=== PATIENT | male | born 1955 | race Caucasian/White ===

== ENCOUNTER 2019-09-11 09:51 | Inpatient (IN) ==
--- NOTE | 2019-09-11 10:08 | ERNOTE ---
Integumentary HPI - General Presenting Symptoms: other - infected right foot, primarily the middle toe Time Seen by Provider: 09/11/19 10:02 Source: patient Exam Limitations: no limitations - Immun/Allergies/Home Medications Immunizations: IMMUNIZATION HX Immunizations Up to Date Yes Allergies/Adverse Reactions: Allergies Allergy/AdvReac Type Severity Reaction Status Date / Time No Known Allergies Allergy Verified 07/24/19 10:36 Home Medications: HOME MEDICATIONS canagliflozin 300 mg tablet 300 mg PO DAILY #90 tab 01/17/19 [Last Taken Unknown] metformin 1,000 mg tablet 1,000 mg PO BIDWM #180 tab 01/17/19 [Last Taken Unknown] metoprolol succinate 100 mg tablet,extended release 24 hr 100 mg PO DAILY #90 tab 05/21/19 [Last Taken Unknown] lisinopril 40 mg tablet 40 mg PO BID #180 tab 05/28/19 [Last Taken Unknown] simvastatin 20 mg tablet 20 mg PO DAILY #90 tab 06/19/19 [Last Taken Unknown] amlodipine 10 mg tablet 10 mg PO DAILY #90 tab 07/23/19 [Last Taken Unknown] hydrochlorothiazide 25 mg tablet 25 mg PO DAILY #90 tab 07/23/19 [Last Taken Unknown] glimepiride 4 mg tablet 4 mg PO BID #180 tab 08/08/19 [Last Taken Unknown] Cefadroxil [Duricef] 500 mg PO TID 09/09/19 [Last Taken Unknown] Insulin Glargine/Lixisenatide [Soliqua 100 Unit-33 Mcg/ml Pen] 60 unit SUBCUT QAM 09/09/19 [Last Taken Unknown] Pen Needle, Diabetic [Pen Needle] See Protocol .ROUTE .MEDSUPPLY 09/09/19 [Last Taken Unknown] - Pain Pain Score: 3 - History of Present Illness Narrative: Patient presents with continuing infection of primarily the middle toe on the right foot which is now spread up to the distal foot. He has been seen by a local metal finish inspector and was started on a first generation cephalosporin. He does have an appointment to see the wound clinic tomorrow in [place]. But became somewhat concerned and decided to have it examined again here in the ED. Location: Reports: feet Severity: moderate Exposure: Reports: no cause identified Modifying Factors - (Improves): Reports: nothing Modifying Factors - (Worsens): Reports: nothing Associated Symptoms: Reports: edema Prior Treatment: Reports: recently seen, treated by physician, currently on antibiotics Review of Systems - Review of Systems Constitutional: Present: See HPI EYE: Present: no symptoms reported ENT: Present: no symptoms reported Respiratory: Present: no symptoms reported Cardiology: Present: no symptoms reported Gastrointestinal/Abdominal: Present: no symptoms reported Genitourinary: Present: no symptoms reported Musculoskeletal: Present: See HPI Skin: Present: no symptoms reported Neurological: Present: no symptoms reported Endocrine: Present: no symptoms reported Hematologic/Lymphatic: Present: no symptoms reported Psych: Present: no symptoms reported Medical History (Last Reviewed 09/11/19 @ 09:57 by Catalina Prabhakar RN) 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 Dr. Wheatley, [facility] Orth[facility] Diabetic Charcot foot R foot Surgical History: Surgical History (Last Reviewed 09/11/19 @ 09:57 by Catalina Prabhakar RN) Hematoma Onset Date: ~01/01/15 right thigh evacuation of hematoma with placement of drain, Dr. Burton History of hip surgery Onset Date: ~1968 Right hip- slipped epiphysis with hardware placement Hx of colonoscopy Onset Date: ~11/03/11 Dr. Karlos morris/julieth in 10 years Family History: Family History (Last Reviewed 09/11/19 @ 09:57 by Catalina Prabhakar RN) Father Hypertension Hyperthyroidism Mother , Age 61 Ovarian cancer Daughter Alive and well Son Alive and well Social History: (Last Reviewed 09/11/19 @ 09:57 by Catalina Prabhakar RN) Social History: adopted: No prison: No Marital status: household members: spouse number of children: 2 current occupational status: retired Service: No Tobacco: Smoking Status: Never smoker Alcohol: alcohol intake: current alcohol intake frequency: a few times a month Dietary Habits: caffeine: Yes Type: coffee Physical Exam - Physical Exam General Appearance: Present: wd/wn, alert, mild distress Head Exam: Present: normal inspection, no evidence of injury Eye Exam: Normal inspection: bilateral, PERRL: bilateral Ears, Nose, Throat: Present: normal ENT inspection, H, normal pharynx Neck: Present: normal inspection, nontender Respiratory: Present: no respiratory distress, normal breath sounds, no accessory muscle use, chest nontender, lungs clear Cardiovascular/Chest: Present: regular rate, rhythm, no murmur, normal peripheral pulses Gastrointestinal/Abdominal: Present: normal bowel sounds, nontender, nondistended, soft, no organomegaly Rectal Exam: Present: deferred Back Exam: Present: normal inspection, normal range of motion Extremity Exam: Present: non-tender, normal range of motion, other - Erythema with edema to the right foot. Mild purulent drainage coming from the middle toe on the right foot with distal erythema on the foot as well up to approximately the transmetatarsal area. Neurological Exam: Present: alert, oriented, normal mood/affect Skin Exam: Present: normal color, warm/dry Lymphatic Exam: Present: no adenopathy Progress - Results and Orders Patient's Lab Results:: I have reviewed the patient's lab results. - Vital Signs Patient's Vital Signs:: I have reviewed the patient's vital signs. Vital Signs: Vital Signs 09/11/19 09:55 Temperature 36.2 C Pulse Rate 98 Respiratory Rate 15 Blood Pressure 106/82 O2 Sat by Pulse Oximetry 96 - X-Ray X-Ray #1 X-Ray: foot Interpretation: Reviewed by me - Progress/Reassessment Chief Complaint: Cellulitis Plan - Plan Plan: Patient will be admitted for aggressive antibiotic therapy. I discussed case with Dr. Beltre, the on-call metal finish inspector, and she agrees to consult the patient on the floor. Patient was informed that he may very likely require surgery and partial amputation of that toe. Departure Clinical Impression: Osteomyelitis of ankle and foot Cellulitis Qualifiers: Site of cellulitis: extremity Site of cellulitis of extremity: toe Laterality: right Qualified Code(s): L03.031 - Cellulitis of right toe - Departure Disposition: Still a patient Condition: Fair Referrals: Cesario Gutierrez MD [Primary Care Provider] -
[2019-09-11 10:37] LABS: Hematocrit 43.2 % (42.0-52.0); Hemoglobin 14.1 gm/dL (13.5-18.0); Mean Cell Volume 86.7 fl (78-100); Mean Corpuscular Hemoglobin 28.3 pg (27-31); Mean Corpuscular Hgb Conc 32.6 g/dl (32-36); Mean Platelet Volume 10.5 fl (8-11.3); Neutrophil # 10.3 K/mm3 (1.3-6.0); Neutrophil % 79.2 % (42-75.0); Platelet Count 211 K/mm3 (150-450); Red Blood Count 4.98 M/mm3 (4.7-6.0); Red Cell Distribution Width 13.5 % (11.5-14.0); White Blood Count 13.1 K/mm3 (4.0-10.5)
[2019-09-11 10:50] LABS: Albumin * 3.2 gm/dl (3.4-5.0); Anion Gap 15.3 mmol/L (6.8-13.8); BUN/Creatinine Ratio 22.2 (9.0-21.6); Bilirubin, Total 0.6 mg/dL (0.0-1.1); Ca. Corrected For Albumin 8.8 mg/dL (8.4-10.2); Calcium * 8.5 mg/dL (7.9-10.9); Carbon Dioxide 24.2 mmol/L (24-32.6); Potassium 4.5 mmol/L (3.4-4.6)
[2019-09-11] MEDS ORDERED: VANCOMYCIN HCL 1 GM in DEXTROSE 5 % IN WATER 250 ML IV ONE ×2 (11:05)
[2019-09-11] MEDS ORDERED: VANCOMYCIN HCL 1 GM, VANCOMYCIN HCL 500 MG in DEXTROSE 5 % IN WATER 500 ML IV ONE ×3 (11:15)
[2019-09-11] MEDS ORDERED: ACETAMINOPHEN 500 MG TABLET PO PRN (13:29)
[2019-09-11] MEDS: GABAPENTIN 300 MG CAPSULE PO SCH ×2 (14:22→16:50)
[2019-09-11] MEDS: ENOXAPARIN SODIUM 40 MG/0.4 ML SYRG SC SCH (14:31)
--- NOTE | 2019-09-11 18:02 | CONS ---
- Reason for consultation (1) Cellulitis Date of Service: 09/11/19 Reason for Consultation:: Ulceration, cellulitis, osteomyelitis right 3rd toe HPI - General Date of Service: 09/11/19 Narrative: Patient seen at bedside for evaluation and care of an ulceration to the distal aspect of the right 3rd toe. States that he has had trouble with this toe for a little while, and has been under the care of Dr. Chau at [facility]. He did also recently see Dr. Frazier, stating that Dr. Chau was unavailable. His most recent visit with Dr. Frazier was today, after the patient noticed some increased redness and swelling about the toe into the foot. He was advised to present to the ED, with concerns of severe infection in the toe. On presentation to the ED, xrays were obtained, showing concern for bone infection. He was admitted for IV ABX therapy, and I was consulted for surgical evaluation. He denies any NVFC. He denies any pain in the foot secondary to diabetic neuropathy. Source: patient Exam Limitations: no limitations - History of Present Illness Timing/Duration: getting worse Severity: severe Allergies/Adverse Reactions: Allergies No Known Allergies Allergy (Verified 07/24/19 10:36) Home Medications: Home Medications Medication Instructions Recorded Last Taken canagliflozin 300 mg tablet 300 mg PO DAILY #90 tab 01/17/19 Unknown metformin 1,000 mg tablet 1,000 mg PO BIDWM #180 tab 01/17/19 Unknown metoprolol succinate 100 mg 100 mg PO DAILY #90 tab 05/21/19 Unknown tablet,extended release 24 hr lisinopril 40 mg tablet 40 mg PO BID #180 tab 05/28/19 Unknown simvastatin 20 mg tablet 20 mg PO DAILY #90 tab 06/19/19 Unknown amlodipine 10 mg tablet 10 mg PO DAILY #90 tab 07/23/19 Unknown hydrochlorothiazide 25 mg tablet 25 mg PO DAILY #90 tab 07/23/19 Unknown glimepiride 4 mg tablet 4 mg PO BID #180 tab 08/08/19 Unknown Insulin Glargine/Lixisenatide 0.5 ml SUBCUT QAM 09/09/19 Unknown [Soliqua 100 Unit-33 Mcg/ml Pen] Pen Needle, Diabetic [Pen Needle] See Protocol .ROUTE .MEDSUPPLY 09/09/19 Unknown Acetaminophen [Tylenol] 500 mg PO Q6H PRN 09/11/19 Unknown Dabigatran Etexilate Mesylate 150 mg PO BID 09/11/19 Unknown [Pradaxa] Gabapentin 300 mg PO TID 09/11/19 Unknown Procedures Colonoscopy (11/03/11) Other incision of soft tissue (01/01/15) Medications - Medications Current Medications: Current Medications Enoxaparin Sodium (Lovenox) 40 mg SC Q24H [facility] Stop: 10/11/19 13:46 Last Admin: 09/11/19 14:31 Dose: 40 mg Documented by: Gabapentin (Neurontin) 300 mg PO TID [facility] Stop: 10/11/19 14:01 Last Admin: 09/11/19 16:50 Dose: 300 mg Documented by: Metformin HCl (Glucophage) 1,000 mg PO BIDWM [facility] Stop: 10/11/19 17:01 Last Admin: 09/11/19 16:50 Dose: 1,000 mg Documented by: Review of Systems - Review of Systems Generalized/Overall Review: Absent: Chills, Fever, Fatigue Respiratory: Absent: Shortness of Breath Cardiac: Present: Edema Abdominal: Absent: Nausea, Vomiting, Diarrhea Neurological: Present: Numbness Skin: Present: Other - ulceration, redness, swelling right 3rd toe Physical Examination - Exam Vital Signs: Vital Signs - Last Taken Temp 37.3 C 09/11/19 14:15 Pulse 84 09/11/19 14:15 Resp 20 09/11/19 14:15 BP 130/71 09/11/19 14:15 Pulse Ox 92 L 09/11/19 14:15 O2 Oxygen Delivery Method Room Air Constitutional: Present: Alert, Oriented x3, Cooperative Peripheral Pulses: dorsalis-pedis (R): 1+, dorsalis-pedis (L): 1+ Extremity: Present: lower extremity edema, pedal edema Skin Exam: Present: other - Ulceration to the distal aspect of the right 3rd toe measuring 0.7 x 0.4 x 3.5 cm. There is no undermining, but the ulceration does tunnel across the entire dorsum of the toe to the base. Wound bed covered with mix of yellow fibtotic slough tissue and red granulation tissue. Surrounding tissue is macerated, edematous, and erythematous. Erythema extends from the 3rd toe in to the dorsum of the foot to the level of the midfoot. This area is warm to touch. There is a moderate amount of purulent drainage, with foul odor present. Bone is palpable through the ulceration. Neurologic: Present: sensory deficit Appearance: Present: appropriate appearance Eye contact: Present: cooperative Thoughts: Present: normal thought pattern - Results and Findings: Narrative: Xrays of right foot reviewed. Agree with report as documented in chart. Lab/Microbiology results last 24 hrs: Abnormal/Pending Laboratory Last 24 HRS 09/11/19 09/11/19 10:21 10:21 WBC 13.1 H Immature Gran # (Auto) 0.05 H Neutrophils % 79.2 H Lymphocytes % 12.5 L Neutrophils # 10.3 H Anion Gap 15.3 H BUN 26 H BUN/Creatinine Ratio 22.2 H Random Glucose 200 H Albumin 3.2 L - Assessments/Findings (1) Cellulitis Diagnosis(s): Continue current ABX as ordered per Dr. Tatum. Problem: Acute Qualifiers: Site of cellulitis: extremity Site of cellulitis of extremity: toe Laterality: right Qualified Code(s): L03.031 - Cellulitis of right toe (2) Osteomyelitis of ankle and foot Diagnosis(s): Discussed xray findings with patient and treatment options. Recommend at minimum partial 3rd toe amputation, with possibility of complete 3rd toe amputation vs partial 3rd ray amputation. Would like to observe on IV ABX for the next 24-48 hours to allow some of the infection that is in the foot to improve, to allow better chances of surgical wound healing. At this time, will schedule for right 3rd toe amputation on 09/14/19, however if condition worsens will plan urgent trip to OR for surgical debridement and amputation. Patient is in agreement with this plan. Ulceration is dressed today with Aquacel Ag, dry gauze, and tape. This dressing will be changed daily by me at this time. He may bear weight on this foot in surgical shoe, which he already has. He is to elevate his extremities at rest to help reduce edema. I will continue to follow, plan for surgery as above. Problem: Acute
[2019-09-11] MEDS ORDERED: LISINOPRIL 40 MG TABLET PO SCH (21:00)
[2019-09-11] MEDS ORDERED: GLIMEPIRIDE 2 MG TABLET ONE (21:35)
[2019-09-11] MEDS: GLIMEPIRIDE 4 MG TABLET PO SCH (21:48)
[2019-09-11] MEDS: SACCHAROMYCES BOULARDII 250 MG CAPSULE PO SCH (21:49)
[2019-09-11] MEDS: SIMVASTATIN 20 MG TABLET PO SCH (21:49)
[2019-09-11] MEDS ORDERED: LISINOPRIL 10 MG TABLET PO SCH (22:00)
[2019-09-11] MEDS: PIPERACILLIN SODIUM/TAZOBACTAM 3.375 GM in DEXTROSE 5 % IN WATER 100 ML IV SCH ×2 (22:13)
[2019-09-11] MEDS ORDERED: GABAPENTIN 300 MG CAPSULE PO ONE (22:51)
--- NOTE | 2019-09-11 23:41 | HP ---
Chief Complaint - Chief Complaint Date of Service: 09/11/19 Time of Service: 16:00 Chief Complaint: Right third toe swelling and redness History of Present Illness: Stuart is a 63 yo male with known diabetes mellitus type 2, insulin dependent with diabetic foot neuropathy on gabapentin, and a history of diabetic foot ulcers. He has been following with Dr. Chau at [facility]. Dr. Chau was out of town so he was seen by Dr. Frazier about 4 days ago. He was started on oral antibiotics and a ulcer on the 3rd right digit was debrided. He followed up today and was having worsening swelling and redness and was ther efore sent to the [facility] ER for further evaluation. In the ER he was evaluated with foot xray which showed: IMPRESSION: 1. FOCAL DESTRUCTIVE CHANGE OF THE DISTAL PHARYNX THE THIRD TOE WITH OVERLYING SOFT TISSUE SWELLING CONSISTENT WITH OSTEOMYELITIS. 2. DIFFUSE CELLULITIS OF THE RIGHT FOOT. 3. EXTENSIVE DEGENERATIVE CHANGE OF THE MIDFOOT WITH ASSOCIATED MIDFOOT COLLAPSE, LATERAL SUBLUXATION AND ANGULATION OF THE METATARSALS AND WIDENING OF BETWEEN THE FIRST AND SECOND METATARSAL BASES CONSISTENT WITH DISRUPTION OF THE LISFRANC JOINT. THIS CONSTELLATION OF FINDINGS IS CONSISTENT WITH DIABETIC NEUROPATHIC JOINT (CHARCOT JOINT). 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 Dr. Wheatley, [facility] Ortho Diabetic Charcot foot R foot Surgical History: Surgical History (Last Reviewed 09/11/19 @ 11:39 by Tanya Kovacs RN) Hematoma Onset Date: ~01/01/15 right thigh evacuation of hematoma with placement of drain, Dr. Burton History of hip surgery Onset Date: ~1968 Right hip- slipped epiphysis with hardware placement Hx of colonoscopy Onset Date: ~11/03/11 Dr. Karlos morris/julieth in 10 years Family History: Family History (Last Reviewed 09/11/19 @ 11:39 by Tanya Kovacs RN) Father Hypertension Hyperthyroidism Mother , Age 61 Ovarian cancer Daughter Alive and well Son Alive and well Social History: (Last Reviewed 09/11/19 @ 09:57 by Catalina Prabhakar RN) Social History: adopted: No mcc: No Marital status: household members: spouse number of children: 2 current occupational status: retired Service: No Tobacco: Smoking Status: Never smoker Alcohol: alcohol intake: current alcohol intake frequency: a few times a month Dietary Habits: caffeine: Yes Type: coffee Review Of Systems (GEN) - Review of Systems Generalized/Overall Review: Absent: Weakness, Chills EENTM: Present: No Symptoms Reported Respiratory: Absent: Cough, Shortness of Breath Cardiac: Absent: Chest Pain, Edema Abdominal: Present: Nausea. Absent: Vomiting, Abdominal Pain, Constipation Genitourinary: Present: No Symptoms Reported Musculoskeletal: Present: Joint Swelling - right 3rd toe Skin: Present: Other - Right third toe with diffuse swelling, erythema, and foul odor Immunizations: IMMUNIZATION HX Immunizations Up to Date Yes Allergies/Adverse Reactions: Allergies Allergy/AdvReac Type Severity Reaction Status Date / Time No Known Allergies Allergy Verified 07/24/19 10:36 Home Medications: HOME MEDICATIONS canagliflozin 300 mg tablet 300 mg PO DAILY #90 tab 01/17/19 [Last Taken Unknown] metformin 1,000 mg tablet 1,000 mg PO BIDWM #180 tab 01/17/19 [Last Taken Unknown] metoprolol succinate 100 mg tablet,extended release 24 hr 100 mg PO DAILY #90 tab 05/21/19 [Last Taken Unknown] lisinopril 40 mg tablet 40 mg PO BID #180 tab 05/28/19 [Last Taken Unknown] simvastatin 20 mg tablet 20 mg PO DAILY #90 tab 06/19/19 [Last Taken Unknown] amlodipine 10 mg tablet 10 mg PO DAILY #90 tab 07/23/19 [Last Taken Unknown] hydrochlorothiazide 25 mg tablet 25 mg PO DAILY #90 tab 07/23/19 [Last Taken Unknown] glimepiride 4 mg tablet 4 mg PO BID #180 tab 08/08/19 [Last Taken Unknown] Insulin Glargine/Lixisenatide [Soliqua 100 Unit-33 Mcg/ml Pen] 0.5 ml SUBCUT QAM 09/09/19 [Last Taken Unknown] Pen Needle, Diabetic [Pen Needle] See Protocol .ROUTE .MEDSUPPLY 09/09/19 [Last Taken Unknown] Acetaminophen [Tylenol] 500 mg PO Q6H PRN 09/11/19 [Last Taken Unknown] Dabigatran Etexilate Mesylate [Pradaxa] 150 mg PO BID 09/11/19 [Last Taken Unknown] Gabapentin 300 mg PO TID 09/11/19 [Last Taken Unknown] Exam - Exam Vital Signs: Vital Signs - Last Taken Temp 37.1 C 09/11/19 22:29 Pulse 88 09/11/19 22:29 Resp 20 09/11/19 22:29 BP 125/72 09/11/19 22:29 Pulse Ox 96 09/11/19 22:29 Constitutional: Present: Alert, Oriented x3, Cooperative ENT Exam: Present: hearing grossly normal Eye Exam: bilateral eye: normal inspection Respiratory: Present: lungs clear, normal breath sounds Cardiovascular/Chest: Present: regular rate, rhythm, no murmur Abdomen: Present: Normal bowel sounds, soft, nontender, nondistended Skin Exam: Present: other - Right third toe diffusely swollen, erythematous, and foul smelling Neurologic: Present: other - Right foot with only sensation at dorsum and heal Appearance: Present: appropriate appearance, appropriate insight Eye contact: Present: cooperative, good eye contact, normal speech Thoughts: Present: normal thought pattern, no apparent hallucination Diagnostic Studies: Abnormal Lab Results 09/11/19 09/11/19 Range/Units 10:21 10:21 WBC 13.1 H (4.0-10.5) K/mm3 Immature Gran # (Auto) 0.05 H (0.000-0.0310) K/mm3 Neutrophils % 79.2 H (42-75.0) % Lymphocytes % 12.5 L (20-51) % Neutrophils # 10.3 H (1.3-6.0) K/mm3 Anion Gap 15.3 H (6.8-13.8) mmol/L BUN 26 H (6-23) mg/dL BUN/Creatinine Ratio 22.2 H (9.0-21.6) Random Glucose 200 H (70-110) mg/dL Albumin 3.2 L (3.4-5.0) gm/dl Laboratory Results WBC 13.1 K/mm3 (4.0-10.5) H 09/11/19 10:21 RBC 4.98 M/mm3 (4.7-6.0) 09/11/19 10:21 Hgb 14.1 gm/dL (13.5-18.0) 09/11/19 10:21 Hct 43.2 % (42.0-52.0) 09/11/19 10:21 MCV 86.7 fl (78-100) 09/11/19 10:21 MCH 28.3 pg (27-31) 09/11/19 10:21 MCHC 32.6 g/dl (32-36) 09/11/19 10:21 RDW 13.5 % (11.5-14.0) 09/11/19 10:21 Plt Count 211 K/mm3 (150-450) 09/11/19 10:21 MPV 10.5 fl (8-11.3) 09/11/19 10:21 Immature Gran % (Auto) 0.40 % (0.001-0.429) 09/11/19 10:21 Immature Gran # (Auto) 0.05 K/mm3 (0.000-0.0310) H 09/11/19 10:21 Neutrophils % 79.2 % (42-75.0) H 09/11/19 10:21 Lymphocytes % 12.5 % (20-51) L 09/11/19 10:21 Monocytes % 6.7 % (0.0-9) 09/11/19 10:21 Eosinophils % 0.9 % (0.0-3.0) 09/11/19 10:21 Basophils % 0.3 % (0.0-1.0) 09/11/19 10:21 Nucleated RBC % 0.0 k/mm3 (0-1) 09/11/19 10:21 Neutrophils # 10.3 K/mm3 (1.3-6.0) H 09/11/19 10:21 Lymphocytes # 1.64 k/mm3 (1.5-3.5) 09/11/19 10:21 Monocytes # 0.9 k/mm3 (0.0-1.0) 09/11/19 10:21 Eosinophils # 0.1 k/mm3 (0.0-0.7) 09/11/19 10:21 Absolute Basophils 0.0 k/mm3 (0.0-0.1) 09/11/19 10:21 Sodium 135 mmol/L (132-142) 09/11/19 10:21 Plasma Sodium 137 mmol/L (130-142) 09/11/19 10:21 Potassium 4.5 mmol/L (3.4-4.6) 09/11/19 10:21 Chloride 100 mmol/L (97-106) 09/11/19 10:21 Carbon Dioxide 24.2 mmol/L (24-32.6) 09/11/19 10:21 Anion Gap 15.3 mmol/L (6.8-13.8) H 09/11/19 10:21 BUN 26 mg/dL (6-23) H 09/11/19 10:21 Creatinine 1.17 mg/dL (0.4-1.4) 09/11/19 10:21 Est GFR (Non-Af Amer) 67 mL/min (60-130) 09/11/19 10:21 BUN/Creatinine Ratio 22.2 (9.0-21.6) H 09/11/19 10:21 Random Glucose 200 mg/dL (70-110) H 09/11/19 10:21 Lactic Acid, Venous 1.4 mmol/L (0.4-2.0) 09/11/19 10:21 Calcium 8.5 mg/dL (7.9-10.9) 09/11/19 10:21 Calcium Adj for Albumin 8.8 mg/dL (8.4-10.2) 09/11/19 10:21 Total Bilirubin 0.6 mg/dL (0.0-1.1) 09/11/19 10:21 AST 16 U/L (0-48) 09/11/19 10:21 ALT 20 U/L (19-67) 09/11/19 10:21 Alkaline Phosphatase 62 U/L (50-170) 09/11/19 10:21 Total Protein 8.0 gm/dL (6.2-8.2) 09/11/19 10:21 Albumin 3.2 gm/dl (3.4-5.0) L 09/11/19 10:21 Assessment/Plan - Narrative Narrative: Stuart is a 63 yo male with osteomyelitis of right third toe secondary to diabetic foot ulcer, diabetic neuropathy, and uncontrolled diabetes mellitus. He will likely need amputation but will admit to inpatient and start on antibiotics of vancomycin and zosyn to decrease bacterial load. Will monitor for improvement and maybe he won't need amputation. Will consult podiatry for evaluation and surgical intervention if needed. - Assessment/Plan (1) Diabetic foot ulcer with osteomyelitis Problem: Acute (2) Diabetic neuropathy associated with type 2 diabetes mellitus Problem: Chronic Qualifiers: Diabetes mellitus complication detail: diabetic polyneuropathy Qualified Co de(s): E11.42 - Type 2 diabetes mellitus with diabetic polyneuropathy (3) Diabetes type 2, uncontrolled Problem: Chronic Qualifiers: Glycemic state: with hyperglycemia Qualified Code(s): E11.65 - Type 2 diabetes mellitus with hyperglycemia
[2019-09-12] MEDS: PIPERACILLIN SODIUM/TAZOBACTAM 3.375 GM in DEXTROSE 5 % IN WATER 100 ML IV SCH ×6 (07:09→21:11)
[2019-09-12] MEDS: GLIMEPIRIDE 4 MG TABLET PO SCH ×2 (08:42→21:10)
[2019-09-12] MEDS: SACCHAROMYCES BOULARDII 250 MG CAPSULE PO SCH ×2 (08:44→21:10)
[2019-09-12] MEDS: GABAPENTIN 300 MG CAPSULE PO SCH ×3 (08:45→21:10)
[2019-09-12] MEDS: HYDROCHLOROTHIAZIDE 25 MG TABLET PO SCH (08:45)
[2019-09-12] MEDS: amLODIPine BESYLATE 10 MG TABLET PO SCH (08:46)
[2019-09-12] MEDS: METOPROLOL SUCCINATE 100 MG TABLET.SA PO SCH (08:48)
[2019-09-12] MEDS: LISINOPRIL 40 MG TABLET PO SCH ×2 (08:48→21:11)
[2019-09-12] MEDS: ENOXAPARIN SODIUM 40 MG/0.4 ML SYRG SC SCH (13:04)
--- NOTE | 2019-09-12 13:55 | PN ---
Subjective - Date and Time Seen Date: 09/12/19 Time: 12:00 Subjective Narrative: Pt evaluated at bedside, resting comfortably. Denies any NVFC. His dressing has been removed at my request after it got wet in the shower. Dry gauze and tape has been applied. He denies any pain in his foot. Feels as though the foot is improving some with current ABX treatment. He has agreed to amputation of the toe, which is planned for 09/14/19, unless condition worsens. No other concerns at this time. Objective - Review of Systems Generalized/Overall Review: Denies: Chills, Fever, Malaise Respiratory: Denies: Shortness of Breath Cardiac: Reports: Edema Abdominal: Denies: Nausea, Vomiting, Diarrhea Neurological: Reports: Numbness Skin: Reports: Other - ulceration right 3rd toe, erythema right foot Endocrine: Denies: Intolerance to Cold, Intolerance to Heat - Vitals Vitals: Last Vital Signs Temp 36.6 C 09/12/19 13:30 Pulse 61 09/12/19 13:30 Resp 24 H 09/12/19 13:30 BP 98/54 09/12/19 13:30 Pulse Ox 93 09/12/19 13:30 - Exam Constitutional: Present: Alert, Oriented x3, Cooperative Extremity: Present: lower extremity edema, pedal edema Skin Exam: Present: other - Ulceration to the distal aspect of the right 3rd toe measuring 0.7 x 0.4 x 3.5 cm. There is no undermining, but the ulceration does tunnel across the entire dorsum of the toe to the base. Wound bed covered with mix of yellow fibtotic slough tissue and red granulation tissue. Surrounding tissue is macerated, edematous, and erythematous. Erythema extends from the 3rd toe in to the dorsum of the foot to the level of the midfoot. Erythema about the dorsum of the foot not as intense today, appears to be improving in this area. This area is warm to touch. There is a moderate amount of bloody- purulent drainage, with foul odor still present. Bone is palpable through the ulceration. Neurologic: Present: sensory deficit Appearance: Present: appropriate appearance Eye contact: Present: cooperative Assessment/Plan - Problems/Diagnosis (1) Cellulitis Problem: Acute Qualifiers: Site of cellulitis: extremity Site of cellulitis of extremity: toe Laterality: right Qualified Code(s): L03.031 - Cellulitis of right toe Narrative: Continue on current ABX, as the cellulitis about the dorsum of the foot appears to be improving. Purulence still draining from the toe, but appears to be less today. (2) Osteomyelitis of ankle and foot Problem: Acute Narrative: Again discussed treatment for the bone infection in his right 3rd toe. Patient still in agreement with amputation. Will continue to monitor infection as the less infection at the time of surgery, the better his healing will be. Will plan to proceed with surgery on 09/14/19, as scheduled unless condition worsens.
[2019-09-12] MEDS ORDERED: VANCOMYCIN HCL 1 GM, VANCOMYCIN HCL 500 MG in DEXTROSE 5 % IN WATER 500 ML IV SCH ×3 (14:00)
[2019-09-12] MEDS: VANCOMYCIN HCL 1 GM, VANCOMYCIN HCL 500 MG in DEXTROSE 5 % IN WATER 500 ML IV SCH ×3 (14:01)
[2019-09-12] MEDS: SIMVASTATIN 20 MG TABLET PO SCH (21:10)
[2019-09-12] MEDS: Soliqua 100 Unit-33 Mcg/Ml Pen SC SCH (21:13)
--- NOTE | 2019-09-12 23:49 | PN ---
Subjective - Date and Time Seen Date: 09/12/19 Time: 12:45 Subjective Narrative: Stuart reports feeling a little better today. Denies fever, chills, nausea, vomiting. His pain is controlled. Objective - Vitals Vitals: Last Vital Signs Temp 36.4 C 09/12/19 22:00 Pulse 62 09/12/19 22:00 Resp 18 09/12/19 22:00 BP 103/55 09/12/19 22:00 Pulse Ox 93 09/12/19 22:00 - Exam Constitutional: Present: Alert, Oriented x3, Cooperative Respiratory: Present: lungs clear, normal breath sounds Cardiovascular/Chest: Present: regular rate, rhythm, no murmur Abdomen: Present: Normal bowel sounds, soft, nontender, nondistended Assessment/Plan Plan Narrative: Stuart is a 63 yo male with osteomyelitis of right 3rd toe secondary to diabetic foot ulcer, secondary to uncontrolled diabetes mellitus type II with diabetic neuropathy. Currently on vancomycin and zosyn for antibiotic coverage. Podiatry consulted. Will treat with antibiotics and hope there is significant improvement but if not will plan for amputation of infected tissue in two days (09/14/19). Continuing home medications. Pain is controlled with gabapentin. - Problems/Diagnosis (1) Diabetic foot ulcer with osteomyelitis Problem: Acute (2) Diabetes type 2, uncontrolled Problem: Chronic Qualifiers: Glycemic state: with hyperglycemia Qualified Code(s): E11.65 - Type 2 diabetes mellitus with hyperglycemia (3) Diabetic neuropathy associated with type 2 diabetes mellitus Problem: Acute Qualifiers: Diabetes mellitus complication detail: diabetic polyneuropathy Qualified Code(s): E11.42 - Type 2 diabetes mellitus with diabetic polyneuropathy
[2019-09-13] MEDS: VANCOMYCIN HCL 1 GM, VANCOMYCIN HCL 500 MG in DEXTROSE 5 % IN WATER 500 ML IV SCH ×6 (01:14→14:00)
[2019-09-13] MEDS: PIPERACILLIN SODIUM/TAZOBACTAM 3.375 GM in DEXTROSE 5 % IN WATER 100 ML IV SCH ×6 (05:15→21:51)
[2019-09-13] MEDS: GABAPENTIN 300 MG CAPSULE PO SCH ×3 (05:16→21:35)
[2019-09-13 06:13] LABS: Hematocrit 40.8 % (42.0-52.0); Hemoglobin 13.2 gm/dL (13.5-18.0); Mean Cell Volume 87.6 fl (78-100); Mean Corpuscular Hemoglobin 28.3 pg (27-31); Mean Corpuscular Hgb Conc 32.4 g/dl (32-36); Mean Platelet Volume 10.5 fl (8-11.3); Neutrophil # 6.7 K/mm3 (1.3-6.0); Neutrophil % 69.4 % (42-75.0); Platelet Count 197 K/mm3 (150-450); Red Blood Count 4.66 M/mm3 (4.7-6.0); Red Cell Distribution Width 13.5 % (11.5-14.0); White Blood Count 9.6 K/mm3 (4.0-10.5)
[2019-09-13 06:19] LABS: Albumin * 2.7 gm/dl (3.4-5.0); Anion Gap 9.2 mmol/L (6.8-13.8); BUN/Creatinine Ratio 22.1 (9.0-21.6); Bilirubin, Total 0.5 mg/dL (0.0-1.1); Ca. Corrected For Albumin 9.2 mg/dL (8.4-10.2); Calcium * 8.5 mg/dL (7.9-10.9); Carbon Dioxide 27.9 mmol/L (24-32.6); Potassium 4.1 mmol/L (3.4-4.6); Total Protein 7.2 gm/dL (6.2-8.2)
[2019-09-13] MEDS ORDERED: INSULIN GLARGINE,HUM.REC.ANLOG 100 UNITS/ML VIAL SC SCH (07:00)
[2019-09-13] MEDS: GLIMEPIRIDE 4 MG TABLET PO SCH ×2 (08:00→21:34)
[2019-09-13] MEDS: HYDROCHLOROTHIAZIDE 25 MG TABLET PO SCH (08:00)
[2019-09-13] MEDS: SACCHAROMYCES BOULARDII 250 MG CAPSULE PO SCH ×2 (08:00→21:34)
[2019-09-13] MEDS: LISINOPRIL 40 MG TABLET PO SCH ×2 (08:01→21:51)
[2019-09-13] MEDS: amLODIPine BESYLATE 10 MG TABLET PO SCH (08:01)
[2019-09-13] MEDS: METOPROLOL SUCCINATE 100 MG TABLET.SA PO SCH (08:01)
--- NOTE | 2019-09-13 11:57 | PN ---
Subjective - Date and Time Seen Date: 09/13/19 Time: 10:05 Subjective Narrative: He feels well and has no complaints. Denies any pain in his foot. He is tolerating diet. Objective - Review of Systems Generalized/Overall Review: Denies: Chills, Fever Respiratory: Denies: Shortness of Breath Cardiac: Denies: Chest Pain Abdominal: Denies: Abdominal Pain Musculoskeletal Complaints: Reports: Joint Swelling - Right third digit Misc: All systems neg except as marked - Vitals Vitals: Last Vital Signs Temp 36.8 C 09/13/19 07:36 Pulse 67 09/13/19 08:01 Resp 16 09/13/19 07:36 BP 109/60 09/13/19 08:01 Pulse Ox 95 09/13/19 07:36 - Abnormal Lab Findings Abnormal Lab Findings: Abnormal Lab Results 09/13/19 09/13/19 Range/Units 05:20 05:20 RBC 4.66 L (4.7-6.0) M/mm3 Hgb 13.2 L (13.5-18.0) gm/dL Hct 40.8 L (42.0-52.0) % Lymphocytes % 18.8 L (20-51) % Eosinophils % 3.6 H (0.0-3.0) % Neutrophils # 6.7 H (1.3-6.0) K/mm3 BUN 27 H (6-23) mg/dL BUN/Creatinine Ratio 22.1 H (9.0-21.6) Random Glucose 201 H (70-110) mg/dL Albumin 2.7 L (3.4-5.0) gm/dl - Exam Constitutional: Present: Alert, Cooperative, Well developed, Well nourished, No distress ENT Exam: Present: hearing grossly normal Neck: Absent: lymphadenopathy (R), lymphadenopathy (L) Respiratory: Present: lungs clear, no respiratory distress, no accessory muscle use, No wheezing. Absent: crackles, rhonchi Cardiovascular/Chest: Present: normal peripheral pulses, regular rate, rhythm, no murmur, edema Abdomen: Present: Normal bowel sounds, soft, nontender, nondistended, obese Extremity: Present: pedal edema - 1+ pitting in the right lower extremity Dressing in place on right third toe Skin Exam: Present: normal color, warm/dry Neurologic: Present: alert, normal mood/affect Appearance: Present: appropriate insight Eye contact: Present: cooperative Thoughts: Present: normal mood /affect Assessment/Plan Plan Narrative: 63-year-old male with past medical history of diabetes, diabetic neuropathy, hypertension, hyperlipidemia, Charcot tests joint of right foot, metabolic disorder, protein S deficiency, DVT presents with osteomyelitis of the right third toe secondary to a diabetic foot ulcer. He is scheduled to go to the operating room for amputation tomorrow with Dr. Beltre. Plan #1 continue with Zosyn day 4 and vancomycin day 3 #2 continue with home medications for his chronic comorbidities #3 DVT prophylaxis with Lovenox #4 continue with probiotics - Problems/Diagnosis (1) Diabetic foot ulcer with osteomyelitis Problem: Acute (2) Diabetic neuropathy associated with type 2 diabetes mellitus Problem: Chronic Qualifiers: Diabetes mellitus complication detail: diabetic polyneuropathy Qualified Code(s): E11.42 - Type 2 diabetes mellitus with diabetic polyneuropathy (3) Metabolic disorder Problem: Chronic (4) Hypertension Problem: Chronic Qualifiers: Hypertension type: essential hypertension Qualified Code(s): I10 - Essential (primary) hypertension (5) hyperlipidemia Problem: Chronic
[2019-09-13] MEDS: ENOXAPARIN SODIUM 40 MG/0.4 ML SYRG SC SCH (14:00)
--- NOTE | 2019-09-13 17:15 | PN ---
Subjective - Date and Time Seen Date: 09/13/19 Time: 16:45 Subjective Narrative: Pt evaluated at bedside, resting comfortably. Denies any NVFC. His dressing is clean and intact with some drainage that has begun to seep through from yesterday. He denies any pain in his foot. Feels as though the foot is improving some with current ABX treatment. He has agreed to amputation of the toe, which is planned for 09/14/19. No other concerns at this time. Objective - Review of Systems Generalized/Overall Review: Denies: Chills, Malaise Respiratory: Denies: Shortness of Breath Cardiac: Reports: Edema Abdominal: Denies: Nausea, Vomiting, Diarrhea Neurological: Reports: Numbness Skin: Reports: Other - right 3rd toe ulcer, cellulitis - Vitals Vitals: Last Vital Signs Temp 36.8 C 09/13/19 15:15 Pulse 55 L 09/13/19 15:15 Resp 24 H 09/13/19 15:15 BP 107/63 09/13/19 15:15 Pulse Ox 92 L 09/13/19 15:15 - Abnormal Lab Findings Abnormal Lab Findings: Abnormal Lab Results 09/13/19 09/13/19 Range/Units 05:20 05:20 RBC 4.66 L (4.7-6.0) M/mm3 Hgb 13.2 L (13.5-18.0) gm/dL Hct 40.8 L (42.0-52.0) % Lymphocytes % 18.8 L (20-51) % Eosinophils % 3.6 H (0.0-3.0) % Neutrophils # 6.7 H (1.3-6.0) K/mm3 BUN 27 H (6-23) mg/dL BUN/Creatinine Ratio 22.1 H (9.0-21.6) Random Glucose 201 H (70-110) mg/dL Albumin 2.7 L (3.4-5.0) gm/dl - Exam Constitutional: Present: Alert, Oriented x3, Cooperative Extremity: Present: lower extremity edema, pedal edema Skin Exam: Present: other - Ulceration to the distal aspect of the right 3rd toe measuring 0.7 x 0.4 x 3.5 cm. There is no undermining, but the ulceration does tunnel across the entire dorsum of the toe to the base. Wound bed covered with mix of yellow fibtotic slough tissue and red granulation tissue. Surrounding tissue is macerated, edematous, and erythematous. Erythema extends from the 3rd toe in to the dorsum of the foot to the level of the midfoot. Erythema about the dorsum of the foot appears to be improving some. This area is warm to touch. There is a moderate amount of bloody-purulent drainage, with foul odor still present. Bone is palpable through the ulceration. Neurologic: Present: sensory deficit Appearance: Present: appropriate appearance Eye contact: Present: cooperative Assessment/Plan - Problems/Diagnosis (1) Cellulitis Problem: Acute Qualifiers: Site of cellulitis: extremity Site of cellulitis of extremity: toe Laterality: right Qualified Code(s): L03.031 - Cellulitis of right toe Narrative: Continue current ABX. Can adjust pending surgical cultures to be obtained tomorrow. (2) Osteomyelitis of ankle and foot Problem: Acute Narrative: Plan for amputation of left 3rd toe tomorrow as discussed. Discussed risks vs benefits of procedure, no guarantees given or implied. All questions answered today. Will obtain informed consent for amputation of left third toe. He will be NPO after midnight tonight.
[2019-09-13] MEDS: SIMVASTATIN 20 MG TABLET PO SCH (21:35)
[2019-09-13] MEDS: Soliqua 100 Unit-33 Mcg/Ml Pen SC SCH (21:48)
[2019-09-14] MEDS: VANCOMYCIN HCL 1 GM, VANCOMYCIN HCL 500 MG in DEXTROSE 5 % IN WATER 500 ML IV SCH ×6 (01:32→14:30)
[2019-09-14] MEDS: GABAPENTIN 300 MG CAPSULE PO SCH ×2 (05:13→14:33)
[2019-09-14 05:29] LABS: Hematocrit 42.5 % (42.0-52.0); Hemoglobin 13.5 gm/dL (13.5-18.0); Mean Cell Volume 88.2 fl (78-100); Mean Corpuscular Hgb Conc 31.8 g/dl (32-36); Mean Platelet Volume 10.1 fl (8-11.3); Neutrophil # 6.5 K/mm3 (1.3-6.0); Neutrophil % 69.1 % (42-75.0); Platelet Count 221 K/mm3 (150-450); Red Blood Count 4.82 M/mm3 (4.7-6.0); Red Cell Distribution Width 13.4 % (11.5-14.0); White Blood Count 9.3 K/mm3 (4.0-10.5)
[2019-09-14] MEDS: PIPERACILLIN SODIUM/TAZOBACTAM 3.375 GM in DEXTROSE 5 % IN WATER 100 ML IV SCH ×4 (05:42→14:30)
[2019-09-14 05:55] LABS: Albumin * 2.9 gm/dl (3.4-5.0); Anion Gap 10.8 mmol/L (6.8-13.8); BUN/Creatinine Ratio 22.1 (9.0-21.6); Bilirubin, Total 0.4 mg/dL (0.0-1.1); Ca. Corrected For Albumin 9.1 mg/dL (8.4-10.2); Calcium * 8.5 mg/dL (7.9-10.9); Carbon Dioxide 28.4 mmol/L (24-32.6); Potassium 4.2 mmol/L (3.4-4.6); Total Protein 7.4 gm/dL (6.2-8.2)
[2019-09-14] MEDS: GLIMEPIRIDE 4 MG TABLET PO SCH (09:17)
[2019-09-14] MEDS: SACCHAROMYCES BOULARDII 250 MG CAPSULE PO SCH (09:18)
[2019-09-14] MEDS: METOPROLOL SUCCINATE 100 MG TABLET.SA PO SCH (09:22)
[2019-09-14] MEDS: amLODIPine BESYLATE 10 MG TABLET PO SCH (09:22)
[2019-09-14] MEDS: HYDROCHLOROTHIAZIDE 25 MG TABLET PO SCH (09:22)
[2019-09-14] MEDS: LISINOPRIL 40 MG TABLET PO SCH (09:22)
--- NOTE | 2019-09-14 10:07 | PN ---
Subjective - Date and Time Seen Date: 09/14/19 Time: 09:26 Subjective Narrative: He has no complaints, denies pain in his right foot, denies chest pain or shortness of breath. He would like to go home today after the procedure. Objective - Review of Systems Generalized/Overall Review: Denies: Fever Respiratory: Denies: Shortness of Breath Cardiac: Denies: Chest Pain Abdominal: Denies: Abdominal Pain Musculoskeletal Complaints: Denies: Joint Pain Misc: All systems neg except as marked - Vitals Vitals: Last Vital Signs Temp 36.2 C 09/14/19 07:03 Pulse 57 L 09/14/19 09:22 Resp 16 09/14/19 07:03 BP 100/58 09/14/19 09:22 Pulse Ox 93 09/14/19 07:03 - Abnormal Lab Findings Abnormal Lab Findings: Abnormal Lab Results 09/14/19 09/14/19 Range/Units 05:20 05:21 MCHC 31.8 L (32-36) g/dl Lymphocytes % 18.8 L (20-51) % Eosinophils % 4.0 H (0.0-3.0) % Neutrophils # 6.5 H (1.3-6.0) K/mm3 BUN 27 H (6-23) mg/dL BUN/Creatinine Ratio 22.1 H (9.0-21.6) Random Glucose 148 H (70-110) mg/dL Albumin 2.9 L (3.4-5.0) gm/dl - Exam Constitutional: Present: Alert, Cooperative ENT Exam: Present: hearing grossly normal Neck: Present: non-tender, supple. Absent: lymphadenopathy (R), lymphadenopathy (L) Respiratory: Present: lungs clear, no respiratory distress, no accessory muscle use, No wheezing. Absent: crackles Cardiovascular/Chest: Present: normal peripheral pulses, regular rate, rhythm, no murmur, edema Abdomen: Present: Normal bowel sounds, soft, nontender, obese Extremity: Present: non-tender, normal inspection, pedal edema Skin Exam: Present: warm/dry Neurologic: Present: alert, normal mood/affect Appearance: Present: appropriate appearance, appropriate insight Eye contact: Present: cooperative Thoughts: Present: normal mood /affect Assessment/Plan Plan Narrative: 63-year-old male with past medical history of diabetes, diabetic neuropathy, hypertension, hyperlipidemia, Charcot tests joint of right foot, metabolic disorder, protein S deficiency, DVT presents with osteomyelitis of the right third toe secondary to a diabetic foot ulcer. He is scheduled to go to the operating room for amputation today with Dr. Beltre. Plan #1 continue with Zosyn day 5 and vancomycin day 4 #2 continue with home medications for his chronic comorbidities #3 DVT prophylaxis with Lovenox #4 continue with probiotics - Problems/Diagnosis (1) Diabetic foot ulcer with osteomyelitis Problem: Acute (2) Diabetic neuropathy associated with type 2 diabetes mellitus Problem: Chronic Qualifiers: Diabetes mellitus complication detail: diabetic polyneuropathy Qualified Code(s): E11.42 - Type 2 diabetes mellitus with diabetic polyneuropathy (3) Metabolic disorder Problem: Chronic (4) Hypertension Problem: Chronic Qualifiers: Hypertension type: essential hypertension Qualified Code(s): I10 - Essential (primary) hypertension (5) hyperlipidemia Problem: Chronic
--- NOTE | 2019-09-14 12:47 | ANES ---
Anesthesia Pre Procedure Eval Vitals/Labs: Last Vital Signs Temp 36.4 C 09/14/19 11:54 Pulse 55 L 09/14/19 11:54 Resp 16 09/14/19 11:54 BP 99/61 09/14/19 11:54 Pulse Ox 93 09/14/19 11:54 HOME MEDICATIONS canagliflozin 300 mg tablet 300 mg PO DAILY #90 tab 01/17/19 [Last Taken Unknown] metformin 1,000 mg tablet 1,000 mg PO BIDWM #180 tab 01/17/19 [Last Taken Unknown] metoprolol succinate 100 mg tablet,extended release 24 hr 100 mg PO DAILY #90 tab 05/21/19 [Last Taken Unknown] lisinopril 40 mg tablet 40 mg PO BID #180 tab 05/28/19 [Last Taken Unknown] simvastatin 20 mg tablet 20 mg PO DAILY #90 tab 06/19/19 [Last Taken Unknown] amlodipine 10 mg tablet 10 mg PO DAILY #90 tab 07/23/19 [Last Taken Unknown] hydrochlorothiazide 25 mg tablet 25 mg PO DAILY #90 tab 07/23/19 [Last Taken Unknown] glimepiride 4 mg tablet 4 mg PO BID #180 tab 08/08/19 [Last Taken Unknown] Insulin Glargine/Lixisenatide [Soliqua 100 Unit-33 Mcg/ml Pen] 0.5 ml SUBCUT QAM 09/09/19 [Last Taken Unknown] Pen Needle, Diabetic [Pen Needle] See Protocol .ROUTE .MEDSUPPLY 09/09/19 [Last Taken Unknown] Acetaminophen [Tylenol] 500 mg PO Q6H PRN 09/11/19 [Last Taken Unknown] Dabigatran Etexilate Mesylate [Pradaxa] 150 mg PO BID 09/11/19 [Last Taken Unknown] Gabapentin 300 mg PO TID 09/11/19 [Last Taken Unknown] Allergies/Adverse Reactions: Allergies Allergy/AdvReac Type Severity Reaction Status Date / Time No Known Allergies Allergy Verified 07/24/19 10:36 - Planned Procedure Planned Procedure: Toe amputation Medication List Reviewed:: Yes Allergies Verified: Yes Medical History (Last Reviewed 09/14/19 @ 12:46 by Triston Vieyra CRNA) 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 Dr. Wheatley, [facility] Diabetic Charcot foot R foot Surgical History (Last Reviewed 09/14/19 @ 12:46 by Triston Vieyra CRNA) Hematoma Onset Date: ~01/01/15 right thigh evacuation of hematoma with placement of drain, Dr. Burton History of hip surgery Onset Date: ~1968 Right hip- slipped epiphysis with hardware placement Hx of colonoscopy Onset Date: ~11/03/11 Dr. Corona- f/u in 10 years Family History (Last Reviewed 09/14/19 @ 12:46 by Triston Vieyra CRNA) Father Hypertension Hyperthyroidism Mother , Age 61 Ovarian cancer Daughter Alive and well Son Alive and well - Family Anesthesia History Family History:: no untoward family reactions to anesthesia, no familial bleeding tendencies, no family history of clotting disorders, no family history of premature - Airway/Neck/Teeth Within Normal Limits:: Yes Denture Type: Perm crown/bridge Mallampatti Score: 2 Thyromental (T-M) distance: > 6 cm Mandibulo Hyoid distance: > 3 cm - Respiratory Respiratory Physical: lungs clear Smoking Status: Never smoker Discussed smoking cessation including day of surgery: No Sleep Apnea currently treated: No Sleep Apnea by current assessment: No Discussed Risks/Treatment of BELLA: No - Cardiovascular Tolerate Activity: Fair Heart Sounds: S1 & S2, Regular - Anesthesia Assessment and Plan ASA Class: PS, III Anesthesia Type Plan: MAC
[2019-09-14] MEDS ORDERED: BUPIVACAINE HCL 50 ML VIAL IJ ONE (13:48)
[2019-09-14] MEDS ORDERED: LIDOCAINE HCL 50 ML VIAL IJ ONE (13:49)
[2019-09-14] MEDS ORDERED: BACITRACIN 50,000 UNITS VIAL IR ONE (13:53)
[2019-09-14] MEDS ORDERED: RINGER'S SOLUTION,LACTATED 1,000 ML IV ONE (14:26)
--- NOTE | 2019-09-14 14:29 | ANES ---
Post Anesthesia Discharge - Transfer of Care Transfer of Care handoff given to nurse: Yes - Discharge from PACU Discharge from PACU when meets criteria: Yes - Discharge to ASU Discharge to ASU-no complications/pt stable: Yes
--- NOTE | 2019-09-14 14:30 | ANES ---
Post Anesthesia Assessment - Vital Signs Vitals: Last Vital Signs Temp 36.4 C 09/14/19 14:25 Pulse 56 L 09/14/19 14:25 Resp 16 09/14/19 14:25 BP 111/64 09/14/19 14:25 Pulse Ox 94 09/14/19 14:25 Airway Patency: Normal - Mental Status Level Of Consciousness: Awake - Pain Level Pain Score: 0 - N/V Assessment Nausea/Vomiting Presence: None Dehydration:: No
[2019-09-14] MEDS: ENOXAPARIN SODIUM 40 MG/0.4 ML SYRG SC SCH (14:33)
--- NOTE | 2019-09-14 15:03 | OR ---
Operative Report - Dictated Report Narrative: OPERATIVE REPORT Date of Surgery: 09/14/2019 Time of Surgery: 1325 Surgeon: Shweta Beltre DPM Escapement Matcher: None Preoperative Diagnosis: Osteomyelitis right third toe Postoperative Diagnosis: Osteomyelitis right third toe Procedure: Amputation right third toe Pathology: Right third toe will be sent for culture as well as pathology exam Anesthesia: Local with Monitored Anesthesia Care Hemostasis: Pneumatic ankle tourniquet at 250 mmHg of pressure Estimated Blood Loss: Minimal Materials: 2-0 Vicryl suture, 3-0 Nylon suture Injectables: 20 mL of a 1:1 mix of 1% lidocaine and 0.5% Marcaine without Epinephrine Complications: None Procedure in Detail: Patient was brought into the operating room and placed on the operating table in the supine position. Pneumatic ankle tourniquet was placed about the patient's right ankle. Following IV sedation, local anesthesia was obtained about the base of the third metatarsal utilizing a total of 20 mL of a 1:1 mix of 1% lidocaine plain and 0.5% Marcaine plain. The foot was then scrubbed prepped and draped in the usual aseptic manner. [place] was then utilized to exsanguinate the patient's right foot and the pneumatic ankle tourniquet was inflated. Attention was directed to the third toe of the right foot where 2 converging, semi-elliptical, longitudinal incisions were made encompassing the base of this toe. Dissection was continued directly down to the level of bone utilizing sharp dissection. Once incision had been made encompassing the entire toe, dissection was continued down to the level of the metatarsal-phalangeal joint, where the third toe was completely disarticulated at this level. It was freed of its surrounding soft tissue attachments and was removed in its entirety. This toe will be sent to lab for culture and then to pathology for further evaluation. Attention was redirected back to the surgical site were all soft tissues were inspected for any remaining necrotic or infected tissue. Any necrotic or potentially infected tissue that was encountered was excised in its entirety and passed from the operative site to the back table. Once all necrotic or infected tissue was completely excised, the wound was flushed with copious amounts of sterile normal saline infused with bacitracin. Surgical site was reinspected for any remaining possibly infected tissues and none were appreciated. The head of the third metatarsal was inspected for any possible infection and no signs of infection were present. The bone was white in color and hard on palpation. It was felt that an adequate third toe amputation been performed. Subcutaneous tissues were then reapproximated and coapted utilizing 2-0 Vicryl suture and the skin was reapproximated and coapted utilizing 3-0 nylon in a simple interrupted suture technique. Following completion of this procedure, the incision was covered Adaptic and dressed with a sterile compressive dressing consisting of 4 x 4's and Toño covered with a light layer Coban wrap. The pneumatic ankle tourniquet was deflated and prompt hyperemic response was noted to all remaining digits of the right foot. A postoperative boot was then applied. Patient tolerated procedure and anesthesia well. He was transferred to recovery with vital signs stable and vascular status intact all toes of the right foot. Following a period of postoperative monitoring, the patient will be returned to his hospital room with the following written and oral postoperative instructions: 1. Keep the dressing clean dry and intact 2. Avoid excessive ambulation on the right foot 3. Ice and elevate the right foot while at rest 4. Wear surgical boot on the right foot at all times while ambulating 5. Contact my office for all postoperative follow-up care, and should any problems arise 6. Resume all previous medications as ordered.
--- NOTE | 2019-09-14 16:00 | DS ---
(1) Diabetic foot ulcer with osteomyelitis Problem: Acute (2) Diabetic neuropathy associated with type 2 diabetes mellitus Problem: Chronic Qualifiers: Diabetes mellitus complication detail: diabetic polyneuropathy Qualified Code(s): E11.42 - Type 2 diabetes mellitus with diabetic polyneuropathy (3) Metabolic disorder Problem: Chronic (4) Hypertension Problem: Chronic Qualifiers: Hypertension type: essential hypertension Qualified Code(s): I10 - Essential (primary) hypertension (5) hyperlipidemia Problem: Chronic Description of Stay: 63-year-old male with past medical history of diabetes, diabetic neuropathy, hypertension, hyperlipidemia, Charcot tests joint of right foot, metabolic disorder, protein S deficiency, DVT presents with osteomyelitis of the right third toe secondary to a diabetic foot ulcer. He was treated with vancomycin and Zosyn prior to surgery. He had his right third toe amputated by Dr. Beltre on September 14, 2019. He is doing well and is stable to be discharged home today. Per Dr. Beltre wants to send him home on Levaquin 750 mg daily for 10 days. The wound culture was positive for Enterococcus faecalis. He will follow-up with Dr. Beltre on September 17, 2019. Procedures Performed: see notes below List Procedures: Amputation of right third toe on September 14, 2019 Results and Findings: Pending Mircobiology Results 09/11/19 Unknown Foot - Right Wound Culture - Preliminary Enterococcus Faecalis Ruling Out Second Organism 09/11/19 10:31 Blood Blood Culture - Preliminary NO GROWTH AFTER 48 HOURS 09/11/19 10:21 Blood Blood Culture - Preliminary NO GROWTH AFTER 48 HOURS Lab Pending Results 09/11/19 10:21: WBC 13.1 H, RBC 4.98, Hgb 14.1, Hct 43.2, MCV 86.7, MCH 28.3, MCHC 32.6, RDW 13.5, Plt Count 211, MPV 10.5, Immature Gran % (Auto) 0.40, Immature Gran # (Auto) 0.05 H, Neutrophils % 79.2 H, Lymphocytes % 12.5 L, Monocytes % 6.7, Eosinophils % 0.9, Basophils % 0.3, Nucleated RBC % 0.0, Neutrophils # 10.3 H, Lymphocytes # 1.64, Monocytes # 0.9, Eosinophils # 0.1, Absolute Basophils 0.0 09/11/19 10:21: Sodium 135, Plasma Sodium 137, Potassium 4.5, Chloride 100, Carbon Dioxide 24.2, Anion Gap 15.3 H, BUN 26 H, Creatinine 1.17, Est GFR (Non- Af Amer) 67, BUN/Creatinine Ratio 22.2 H, Random Glucose 200 H, Calcium 8.5, Calcium Adj for Albumin 8.8, Total Bilirubin 0.6, AST 16, ALT 20, Alkaline Phosphatase 62, Total Protein 8.0, Albumin 3.2 L 09/11/19 10:21: Lactic Acid, Venous 1.4 09/13/19 05:20: WBC 9.6 D, RBC 4.66 L, Hgb 13.2 L, Hct 40.8 L, MCV 87.6, MCH 28.3, MCHC 32.4, RDW 13.5, Plt Count 197, MPV 10.5, Immature Gran % (Auto) 0.30, Immature Gran # (Auto) 0.03, Neutrophils % 69.4, Lymphocytes % 18.8 L, Monocytes % 7.4, Eosinophils % 3.6 H, Basophils % 0.5, Nucleated RBC % 0.0, Neutrophils # 6.7 H, Lymphocytes # 1.81, Monocytes # 0.7, Eosinophils # 0.4, Absolute Basophils 0.1 09/13/19 05:20: Sodium 134, Plasma Sodium 136, Potassium 4.1, Chloride 101, Carbon Dioxide 27.9, Anion Gap 9.2, BUN 27 H, Creatinine 1.22, Est GFR (Non-Af Amer) 64, BUN/Creatinine Ratio 22.1 H, Random Glucose 201 H, Calcium 8.5, Calcium Adj for Albumin 9.2, Total Bilirubin 0.5, AST 18, ALT 20, Alkaline Phosphatase 61, Total Protein 7.2, Albumin 2.7 L 09/14/19 05:20: WBC 9.3, RBC 4.82, Hgb 13.5, Hct 42.5, MCV 88.2, MCH 28.0, MCHC 31.8 L, RDW 13.4, Plt Count 221, MPV 10.1, Immature Gran % (Auto) 0.30, Immature Gran # (Auto) 0.03, Neutrophils % 69.1, Lymphocytes % 18.8 L, Monocytes % 7.4, Eosinophils % 4.0 H, Basophils % 0.4, Nucleated RBC % 0.0, Neutrophils # 6.5 H, Lymphocytes # 1.76, Monocytes # 0.7, Eosinophils # 0.4, Absolute Basophils 0.0 09/14/19 05:21: Sodium 134, Plasma Sodium 135, Potassium 4.2, Chloride 99, Carbon Dioxide 28.4, Anion Gap 10.8, BUN 27 H, Creatinine 1.22, Est GFR (Non-Af Amer) 64, BUN/Creatinine Ratio 22.1 H, Random Glucose 148 H, Calcium 8.5, Calcium Adj for Albumin 9.1, Total Bilirubin 0.4, AST 23, ALT 25, Alkaline Phosphatase 67, Total Protein 7.4, Albumin 2.9 L 09/14/19 13:43: Pathology Specimen Spec to path Discharge Location: Home Disposition: Home self-care Condition: Fair Discharge Activity: Non-Weight bearing - Right foot Discharge Diet: Consistent carbs Referrals: Cesario Gutierrez MD [Primary Care Provider] - Additional Patient Instructions (free text): Follow up with Dr Beltre on Tuesday, Sep.17, at 2:15pm. Keep your dressing clean and dry. Dr Beltre will change it at your follow up appointment. Prescriptions (Any new or edited meds): Levofloxacin [Levaquin] 750 mg PO DAILY #10 tab Transmission Status: P[facility] to [facility] [place], [place] Complete Home Medications List: Complete Home Medication List: canagliflozin 300 mg tablet 300 mg PO DAILY #90 tab 01/17/19 metformin 1,000 mg tablet 1,000 mg PO BIDWM #180 tab 01/17/19 metoprolol succinate 100 mg tablet,extended release 24 hr 100 mg PO DAILY #90 tab 05/21/19 lisinopril 40 mg tablet 40 mg PO BID #180 tab 05/28/19 simvastatin 20 mg tablet 20 mg PO DAILY #90 tab 06/19/19 amlodipine 10 mg tablet 10 mg PO DAILY #90 tab 07/23/19 hydrochlorothiazide 25 mg tablet 25 mg PO DAILY #90 tab 07/23/19 glimepiride 4 mg tablet 4 mg PO BID #180 tab 08/08/19 Insulin Glargine/Lixisenatide [Soliqua 100 Unit-33 Mcg/ml Pen] 0.5 ml SUBCUT QAM 09/09/19 Pen Needle, Diabetic [Pen Needle] See Protocol .ROUTE .MEDSUPPLY 09/09/19 Acetaminophen [Tylenol] 500 mg PO Q6H PRN 09/11/19 Dabigatran Etexilate Mesylate [Pradaxa] 150 mg PO BID 09/11/19 Gabapentin 300 mg PO TID 09/11/19 Levofloxacin [Levaquin] 750 mg PO DAILY #10 tab 09/14/19
[2019-09-14 16:29] VITALS: BP 121/68
[2019-09-15] MEDS ORDERED: LIDOCAINE HCL 50 ML VIAL IJ ONE (06:00)
[2019-09-15] MEDS ORDERED: BUPIVACAINE HCL 50 ML VIAL IJ ONE (06:00)
== END 2019-09-14 17:14 | disposition home or self-care (01) | DRG 504 ==
LOC: ER 09:51 → MS 11:21
PROVIDERS: ADMIT Family Medicine; ATTEND Family Medicine
CPT/HCPCS: 36415; 73630; 80053; 83605; 85025; 87040; 87070; 87077; 87186; 99285